=== PATIENT | female | born 1955 | race Caucasian/White ===

== ENCOUNTER 2020-04-26 10:37 | Day surgery (SDC) | payer OTHER, MEDICARE ==
[2020-04-19 15:54] VITALS: BMI 30.2
[2020-04-26] MEDS ORDERED: ERYTHROMYCIN 0.5% OPHTHALMIC OINTMENT 3.5 GM TUBE ONE (12:38)
[2020-04-26] MEDS ORDERED: TETRACAINE 0.5% OPHTH SOLN 2 ML BOTTLE ONE (12:38)
[2020-04-26] MEDS ORDERED: POVIDONE-IODINE 5% OPHTHALMIC PREP 30 ML SOLUTION ONE (12:38)
[2020-04-26] MEDS ORDERED: LIDOCAINE 1%/EPI 1:100000 (20 ML MULTI DOSE VIAL) ONE (12:38)
[2020-04-26] MEDS ORDERED: PROPOFOL 20 ML ONE (13:08)
[2020-04-26] MEDS ORDERED: MIDAZOLAM HCL 2 MG/2 ML SINGLE DOSE VIAL ONE (13:08)
[2020-04-26] MEDS ORDERED: ONDANSETRON 4 MG/2 ML VIAL IVPUSH PRN (14:33)
[2020-04-26] MEDS ORDERED: oxyCODONE HCL 5 MG TABLET PO PRN (14:33)
[2020-04-26] MEDS ORDERED: LACTATED RINGERS SOLUTION 1,000 ML IV SCH (14:45)
[2020-04-26 15:30] VITALS: TEMP 98.1
[2020-04-26 17:09] VITALS: BP 130/72; PULSE 59
== END 2020-04-26 16:30 | disposition home or self-care (01) ==
LOC: FASU 10:37
PROVIDERS: ATTEND Ophthalmology
PROC: 08B Eye, Excision (ICD-10-PCS; 2020-04-26)
PROC: 08BQ0ZX Excision of Right Lower Eyelid, Open Approach, Diagnostic (ICD-10-PCS; principal; 2020-04-26 13:29)
DX: L72.3 Sebaceous cyst (principal)
CPT/HCPCS: 88304-TC; 94760